=== PATIENT | male | born 1970 | race Hispanic/Latino ===

== ENCOUNTER 2017-12-17 16:11 | Emergency (ER) | payer OTHER ==
[2017-12-17] MEDS ORDERED: Ketorolac Tromethamine 30 MG/ML VIAL ONE (17:32)
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
== END 2017-12-17 18:08 | disposition home or self-care (01) ==
LOC: ERS 16:11
DX: S00.03XA Contusion of scalp, initial encounter (principal); M54.5 Low back pain; E78.00 Pure hypercholesterolemia, unspecified; V43.52XA Car driver injured in collision with other type car in traffic accident, initial encounter
CPT/HCPCS: 70450; 72100; 72125; 96372; J1885